=== PATIENT | male | born 1985 | race Two or more races ===

== ENCOUNTER 2017-09-17 21:49 | Emergency (ER) | payer OTHER ==
[2017-09-17 21:59] VITALS: BP 132/72
[2017-09-17] MEDS ORDERED: LIDOCAINE 1%/EPINEPHRINE INJ 20 ML VIAL INJ ONE (23:23)
--- NOTE | 2017-09-17 23:24 | ER Document Report ---
ED Wound - General Chief Complaint: Laceration Stated Complaint: LEFT HAND INJURY Time Seen by Provider: 09/17/17 23:20 Notes: Patient is a 32-year-old male that comes emergency department for chief complaint of laceration to his left hand at the base of the thumb. He states he was sharpening a knife while at work and the knife slipped and he stabbed himself in the hand accidentally. He reports he is up-to-date on his tetanus within 5 years. He denies any other injuries. TRAVEL OUTSIDE OF THE [place] IN LAST 30 DAYS: No - Related Data Allergies/Adverse Reactions: No Known Allergies Allergy (Unverified 09/17/17 21:53) Past Medical History - General Information source: Patient - Social History Smoking Status: Current Every Day Smoker Chew tobacco use (# tins/day): No Smoking Education Provided: Yes - <3 min Frequency of alcohol use: Occasional Drug Abuse: None Lives with: Family Family History: Reviewed & Not Pertinent Patient has suicidal ideation: No Patient has homicidal ideation: No - Medical History Medical History: Negative Renal/ Medical History: Denies: Hx Peritoneal Dialysis Surgical Hx: Negative - Immunizations Immunizations up to date: Yes Hx Diphtheria, Pertussis, Tetanus Vaccination: Yes Review of Systems - Review of Systems Constitutional: No symptoms reported EENT: No symptoms reported Cardiovascular: No symptoms reported Respiratory: No symptoms reported Gastrointestinal: No symptoms reported Genitourinary: No symptoms reported Male Genitourinary: No symptoms reported Musculoskeletal: See HPI Skin: See HPI Hematologic/Lymphatic: No symptoms reported Neurological/Psychological: No symptoms reported Physical Exam - Vital signs Vitals: Temp Pulse Resp BP Pulse Ox 98.9 F 63 14 132/72 H 97 09/17/17 21:57 09/17/17 21:57 09/17/17 21:57 09/17/17 21:57 09/17/17 21:57 Interpretation: Normal - General General appearance: Appears well In distress: None - HEENT Head: Normocephalic, Atraumatic Eyes: Normal Pupils: PERRL - Respiratory Respiratory status: No respiratory distress Chest status: Nontender Breath sounds: Normal Chest palpation: Normal - Cardiovascular Rhythm: Regular Heart sounds: Normal auscultation Murmur: No - Abdominal Inspection: Normal Distension: No distension Bowel sounds: Normal Tenderness: Nontender Organomegaly: No organomegaly - Back Back: Normal, Nontender - Extremities General upper extremity: Other - Left hand with laceration over the palmar aspect at the base of the thumb and the thenar muscle area, laceration is about 2.5 cm, slightly irregular. Laceration is full-thickness into the muscle, upon expiration I am able to visualize what appears to be a severed tendon. No severe bleeding. Sensation is dull but intact. Patient still has ability to move his thumb with limited range of motion at the MCP but has normal range of motion at the DIP. Remaining examination unremarkable. General lower extremity: Normal inspection, Nontender, Normal color, Normal ROM , Normal temperature, Normal weight bearing. No: Zoila's sign - Neurological Neuro grossly intact: Yes Cognition: Normal Orientation: AAOx4 Karina Coma Scale Eye Opening: Spontaneous Karina Coma Scale Verbal: Oriented Karina Coma Scale Motor: Obeys Commands [place] Coma Scale Total: 15 Speech: Normal Motor strength normal: LUE, RUE, LLE, RLE Sensory: Normal - Psychological Associated symptoms: Normal affect, Normal mood - Skin Skin Temperature: Warm Skin Moisture: Dry Skin Color: Normal Course - Re-evaluation Re-evalutation: Upon examination of the wound there is evidence of laceration of the tendon in the hand at the base of the thumb. Discussed with Dr. Allen, recommends contacting Dr. Lee, orthopedics [facility] application consultant. Spoke with Dr. Lee, plan is to perform superficial closure after irrigation, apply splint, and have patient call the office in the morning to set up his close follow-up appointment. I discussed this with patient and friend in detail. They state understanding and agreement with plan. - Vital Signs Vital signs: Temp Pulse Resp BP Pulse Ox 98.9 F 63 14 132/72 H 97 09/17/17 21:57 09/17/17 21:57 09/17/17 21:57 09/17/17 21:57 09/17/17 21:57 Procedures - Immobilization Left hand/wrist Pre-Proc Neuro Vasc Exam: Other - Limited range of motion of the MCP Immobilizer type: Thumb spica Performed by: PCT Post-Proc Neuro Vasc Exam: Normal Alignment checked and good: Yes - Laceration/Wound Repair Left palm/thumb Wound length (cm): 2.5 Wound's Depth, Shape: Irregular Laceration pre-procedure: Sterile PPE donned, Sterile drapes applied, Shur- Clens applied Anesthetic type: 1% Lidocaine w/epi Volume Anesthetic (mLs): 4 Wound explored: Clean, No foreign body removed Irrigated w/ Saline (mLs): 50 Wound Repaired With: Sutures Suture Size/Type: 4:0, Nylon Number of Sutures: 6 Layer Closure?: No Post-procedure wound care: Sterile dressing applied, Splint applied Post-procedure NV exam normal: No - Unchanged from prior Complications: No Discharge - Discharge Clinical Impression: Hand laceration involving tendon Qualifiers: Encounter type: initial encounter Laterality: left Qualified Code(s): S61.412A - Laceration without foreign body of left hand, initial encounter Condition: Stable Disposition: HOME, SELF-CARE Additional Instructions: The wound is deep and concerning for tendon injury. The top of the wound has been approximated, please wear the splint, call the orthopedic surgeon referral listed (Dr. Lee), call tomorrow morning to set up your appointment and close follow-up. Forms: Smoking Cessation Education, Return to Work Referrals: FAROOQ LEE, [ACTIVE STAFF] - Follow up tomorrow
== END 2017-09-18 00:37 | disposition home or self-care (01) ==
LOC: ER 21:49
PROC: 0HQGXZZ Repair Left Hand Skin, External Approach (ICD-10-PCS; principal; 2017-09-17)
DX: S61.412A Laceration without foreign body of left hand, initial encounter (principal); W26.0XXA Contact with knife, initial encounter; Y93.89 Activity, other specified; Y99.0 Civilian activity done for income or pay
CPT/HCPCS: 99283; 12001; J3490